=== PATIENT | female | born 1955 | race Caucasian/White ===

== ENCOUNTER 2017-09-16 07:11 | Day surgery (SDC) | payer BC ==
[2017-09-16] MEDS ORDERED: Propofol 200 MG/20 ML SDV ONE ×2 (07:13→07:43)
[2017-09-16] MEDS ORDERED: Midazolam 1 MG/ML 2 ML SDV ONE ×2 (07:13→07:43)
[2017-09-16] MEDS ORDERED: fentaNYL 100 MCG/2 ML SDV ONE ×2 (07:13→07:43)
[2017-09-16] MEDS ORDERED: Lidocaine 2% 5 ML SDV ONE ×2 (07:15→07:43)
[2017-09-16] MEDS ORDERED: Bupivacaine 0.25% 10 ML SDV ONE (07:22)
--- NOTE | 2017-09-16 07:40 | PCM.PREANE ---
Preanesthetic Assessment - Anesthesia/Transfusion/Family Hx Anesthesia History: Prior Anesthesia Without Reaction Family History of Anesthesia Reaction: No Transfusion History: No Prior Transfusion(s) Intubation History: Unknown - Review of Systems General: No Symptoms Pulmonary: No Symptoms Cardiovascular: No Symptoms Gastrointestinal: No Symptoms Neurological: No Symptoms Other: Reports: None - Physical Assessment Height: 1.66 m Weight: 90.718 kg ASA Class: 3 Mental Status: Alert & Oriented x3 Airway Class: Mallampati = 2 Dentition: Reports: Normal Dentition (teeth overlaping, crowded) Thyro-Mental Finger Breadths: 3 Mouth Opening Finger Breadths: 2 ROM/Head Extension: Limited/Partial Lungs: Clear to Auscultation, Normal Respiratory Effort Cardiovascular: Regular Rate, Regular Rhythm - Allergies Allergies/Adverse Reactions: Allergies Allergy/AdvReac Type Severity Reaction Status Date / Time No Known Allergies Allergy Verified 06/15/14 04:08 - Blood Blood Available: No - Anesthesia Plan Pre-Op Medication Ordered: None - Acknowledgements Anesthesia Type Planned: MAC Pt an Appropriate Candidate for the Planned Anesthesia: Yes Alternatives and Risks of Anesthesia Discussed w Pt/Guardian: Yes Pt/Guardian Understands and Agrees with Anesthesia Plan: Yes PreAnesthesia Questionnaire HEENT History: Reports: Other (See Below) Other HEENT History: wears glassses Cardiovascular History: Reports: CAD, High Cholesterol, Hypertension, Stents ( x2 '11 and x1 '13) Respiratory History: Reports: Sleep Apnea Other Respiratory History: hx sleep apnea in 2009, does not use CPAP, states she feels does not have sleep apnea anymore as she has lost weight Genitourinary History: Reports: None 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: Musculoskeletal History: Reports: Arthritis, Fracture Neurological History: Reports: None Endocrine/Metabolic History: Reports: Diabetes, Type II, Obesity/BMI 30+ - Past Surgical History Head Surgeries/Procedures: Reports: None HEENT Surgical History: Reports: Tonsillectomy Cardiovascular Surgical History: Reports: Coronary Artery Stent Female Surgical History: Reports: Tubal Ligation Musculoskeletal Surgical History: Reports: Knee Replacement Other Musculoskeletal Surgeries/Procedures:: hx rt knee replacement, and tx for fx left wrist and fx ankle - SUBSTANCE USE Smoking Status *Q: Never Smoker Recreational Drug Use History: No - HOME MEDS Home Medications: Home Meds Aspirin 81 mg PO QAM 06/15/14 [History] Atenolol 25 mg PO QAM 06/15/14 [History] Glucosamine [Glucosamine Sulfate] 500 mg PO QAM 06/15/14 [History] Lisinopril 5 mg PO QAM 06/15/14 [History] Multivitamin with Minerals [Antioxidant Vitamin] 1 each PO QAM 06/15/14 [History ] Nitroglycerin [Nitrostat] 0.4 mg SL ASDIRECTED PRN 06/15/14 [History] [place]-3/DHA/Epa/Fish Oil [Fish Oil 1,000 mg Softgel] 1 each PO QAM 06/15/14 [ History] atorvaSTATin [Lipitor] 40 mg PO BEDTIME 06/15/14 [History] metFORMIN [Glucophage XR] 2 tab PO BID 06/15/14 [History] Cholecalciferol (Vitamin D3) [Vitamin D3] 4,000 unit PO DAILY 09/14/17 [History] Clopidogrel Bisulfate [Plavix] 75 mg PO DAILY 09/14/17 [History] Dulaglutide [Trulicity] 0.75 mg SUBCUT WEEKLY 09/14/17 [History] Ibuprofen 400 mg PO ASDIRECTED PRN 09/14/17 [History] - CURRENT (IN HOUSE) MEDS Current Meds: Current Medications Hydrocodone Bitart/Acetaminophen ([place] 325-5 Mg) 1 tab PO Q4H PRN PRN Reason: Pain Bupivacaine HCl (Sensorcaine-Mpf 0.25%) 10 ml INJECT ONETIME ONE Stop: 09/16/17 08:01 Cefazolin Sodium/Dextrose 2 gm (/ Premix) 50 mls @ 100 mls/hr IV ONETIME ONE Stop: 09/16/17 08:29 Lactated Ringer's (Ringers, Lactated) 1,000 mls @ 125 mls/hr IV ASDIRECTED KASSIDY Discontinued Medications Bupivacaine HCl (Sensorcaine-Mpf 0.25%) Confirm Administered Dose 20 ml .ROUTE .STK-MED ONE Stop: 09/16/17 07:23 Fentanyl (Sublimaze) Confirm Administered Dose 100 mcg .ROUTE .STK-MED ONE Stop: 09/16/17 07:14 Lidocaine (Xylocaine-Mpf 2%) Confirm Administered Dose 5 ml .ROUTE .STK-MED ONE Stop: 09/16/17 07:16 Midazolam HCl (Versed 1 Mg/Ml) Confirm Administered Dose 2 mg .ROUTE .STK-MED ONE Stop: 09/16/17 07:14 Propofol (Diprivan 20 Ml) Confirm Administered Dose 200 mg .ROUTE .STK-MED ONE Stop: 09/16/17 07:14
[2017-09-16] MEDS ORDERED: ceFAZolin 2 GM in Premix Bag 1 BAG IV ONE (08:00)
[2017-09-16] MEDS ORDERED: Bupivacaine 0.25% 10 ML SDV INJECT ONE (08:00)
[2017-09-16] MEDS ORDERED: Lactated Ringers 1,000 ML IV SCH (08:00)
[2017-09-16] MEDS ORDERED: Acetaminophen/HYDROcodone 325-5 MG Tab PO PRN (08:00)
[2017-09-16] MEDS ORDERED: Ketorolac 30 MG/ML SDV ONE (08:42)
[2017-09-16] MEDS ORDERED: Ondansetron 4 MG/2 ML SDV ONE (08:42)
[2017-09-16] MEDS ORDERED: diphenhydrAMINE 50 MG/ML SDV ONE (08:42)
--- NOTE | 2017-09-16 20:05 | PCM.OPNOTE ---
- General Post-Op/Procedure Note Date of Surgery/Procedure: 09/16/17 Operative Procedure(s): right carpal tunnel release Pre Op Diagnosis: carpal tunnel syndrome right Post-Op Diagnosis: Same Anesthesia Technique: Local, MAC Primary Surgeon: Carlee Umana Injection Operator: Griselda Albrecht Role of Injection Operator: retraction Complications: None Condition: Good Free Text/Narrative:: Intake & Output 09/16/17 09/16/17 09/16/17 07:59 15:59 23:59 Intake Total 850 Balance 850
--- NOTE | 2017-09-24 20:21 | OR ---
SURGEON: GERMAIN MADRID MD DATE OF PROCEDURE: 09/16/2017 PREOPERATIVE DIAGNOSIS: Right carpal tunnel syndrome. POSTOPERATIVE DIAGNOSIS: Right carpal tunnel syndrome. PROCEDURE PERFORMED: Right carpal tunnel release. INDICATIONS: Ms. Moran is a 62-year-old female seen today in evaluation for right carpal tunnel release. Risks and benefits of carpal tunnel release were discussed with her and she was in agreement to proceed. Risks were including, but not limited to, bleeding, infection, damage to underlying or overlying structures, possible need for future interventions, possible scarring. PROCEDURE IN DETAIL: After informed consent was obtained and placed on the chart, the patient was brought to the operating theater and laid in supine position. After adequate local MAC anesthesia was obtained, the area was prepped and draped and a time- out was completed to confirm side and site. Once adequately prepped and draped and a time-out had been completed, the arm was exsanguinated and the tourniquet was then inflated to 200 mmHg. Once adequately inflated, attention was paid to dissection of the transverse carpal ligament. A 15 blade was used to dissect through the skin and subcutaneous tissues, and once the ligament was breached, dissection was carried distally and proximally under direct visualization. Once adequately released, attention was then paid to irrigation and closure using a 5-0 nylon stitch in a horizontal mattress fashion. Once adequately closed, the wound was dressed with Xeroform fluffs and a Kerlix gauze dressing and a 2-inch Sridhar wrap. The patient tolerated this well. All counts and needles were correct at the end of the case. FOLLOWUP INSTRUCTIONS: The patient will see us in two weeks or sooner if any problems, questions, or concerns. She was given a prescription for pain control. She will keep the dressing on for 48 hours and then remove and shower per usual. HEGGTHE / MODL /[id number]
== END 2017-09-16 09:45 | disposition home or self-care (01) ==
LOC: MW.SDS 07:11
PROVIDERS: ATTEND Plastic Surgery
DX: G56.01 Carpal tunnel syndrome, right upper limb (principal); I25.10 Atherosclerotic heart disease of native coronary artery without angina pectoris; I10 Essential (primary) hypertension; E78.00 Pure hypercholesterolemia, unspecified; G47.33 Obstructive sleep apnea (adult) (pediatric); M17.0 Bilateral primary osteoarthritis of knee; E11.9 Type 2 diabetes mellitus without complications; E66.9 Obesity, unspecified; Z95.5 Presence of coronary angioplasty implant and graft; Z79.82 Long term (current) use of aspirin; Z79.899 Other long term (current) drug therapy; Z79.02 Long term (current) use of antithrombotics/antiplatelets; Z79.84 Long term (current) use of oral hypoglycemic drugs; Z90.89 Acquired absence of other organs; Z98.51 Tubal ligation status; Z68.34 Body mass index [BMI] 34.0-34.9, adult; Z96.651 Presence of right artificial knee joint
CPT/HCPCS: 64721; J1200; J1885; J2250; J2405; J3010; 01810; J2704

== ENCOUNTER 2018-12-21 08:02 | Day surgery (SDC) | payer BC ==
[~2018-12-21 08:02] MED LIST: Glycopyrrolate 0.2 MG/ML SDV ONE; Lactated Ringers 1,000 ML IV SCH; Midazolam 1 MG/ML 2 ML SDV ONE; Ondansetron 4 MG/2 ML SDV ONE; Propofol 200 MG/20 ML SDV ONE; Rocuronium 10 MG/ML 10 ML Syringe ONE; Sodium Chloride 0.9% 10 ML SDV IV PRN; Sodium Chloride 0.9% 10 ML Syringe FLUSH PRN; Sodium Chloride 0.9% 2.5 ML Syringe FLUSH PRN; fentaNYL 100 MCG/2 ML SDV ONE
--- NOTE | 2018-12-21 08:35 | PCM.PREANE ---
Preanesthetic Assessment - Anesthesia/Transfusion/Family Hx Anesthesia History: Prior Anesthesia Without Reaction Family History of Anesthesia Reaction: No Transfusion History: No Prior Transfusion(s) Intubation History: Unknown - Review of Systems General: No Symptoms Pulmonary: No Symptoms Cardiovascular: No Symptoms Gastrointestinal: Other (recent cologuard test positive) Neurological: No Symptoms Other: Reports: None - Physical Assessment Height: 1.65 m Weight: 95.708 kg ASA Class: 3 Mental Status: Alert & Oriented x3 Airway Class: Mallampati = 2 Dentition: Reports: Normal Dentition (overlaping front upper teeth) Thyro-Mental Finger Breadths: 3 Mouth Opening Finger Breadths: 2 ROM/Head Extension: Full Lungs: Clear to Auscultation, Normal Respiratory Effort Cardiovascular: Regular Rate, Regular Rhythm - Allergies Allergies/Adverse Reactions: Allergies Allergy/AdvReac Type Severity Reaction Status Date / Time No Known Allergies Allergy Verified 12/16/18 11:00 - Blood Blood Available: No - Anesthesia Plan Pre-Op Medication Ordered: None - Acknowledgements Anesthesia Type Planned: MAC Pt an Appropriate Candidate for the Planned Anesthesia: Yes Alternatives and Risks of Anesthesia Discussed w Pt/Guardian: Yes Pt/Guardian Understands and Agrees with Anesthesia Plan: Yes PreAnesthesia Questionnaire HEENT History: Reports: Other (See Below) Other HEENT History: wears glasses Cardiovascular History: Reports: CAD, High Cholesterol, Hypertension, Stents Respiratory History: Reports: Sleep Apnea Other Respiratory History: hx of sleep apnea before cardiac stent placement, no symptoms now Genitourinary History: Reports: None 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: Musculoskeletal History: Reports: Osteoarthritis Neurological History: Reports: None Endocrine/Metabolic History: Reports: Diabetes, Type II, Obesity/BMI 30+ - Past Surgical History Head Surgeries/Procedures: Reports: None HEENT Surgical History: Reports: Tonsillectomy Cardiovascular Surgical History: Reports: Coronary Artery Stent Other Cardiovascular Surgeries/Procedures: 2 stents placed in 2010 and 1 stent in 2013 Female Surgical History: Reports: Tubal Ligation Musculoskeletal Surgical History: Reports: Knee Replacement, ORIF Other Musculoskeletal Surgeries/Procedures:: hx right TKA, ORIF left ankle ( hardware removed) and ORIF left wrist-has hardware - SUBSTANCE USE Smoking Status *Q: Never Smoker Recreational Drug Use History: No - HOME MEDS Home Medications: Home Meds Aspirin 81 mg PO QAM 06/15/14 [History] Atenolol 25 mg PO QAM 06/15/14 [History] Glucosamine [Glucosamine Sulfate] 500 mg PO QAM 06/15/14 [History] Lisinopril 5 mg PO QAM 06/15/14 [History] Multivitamin with Minerals [Antioxidant Vitamin] 1 each PO QAM 06/15/14 [History ] Nitroglycerin [Nitrostat] 0.4 mg SL ASDIRECTED PRN 06/15/14 [History] [place]-3/DHA/Epa/Fish Oil [Fish Oil 1,000 mg Softgel] 1,000 mg PO QAM 06/15/14 [ History] atorvaSTATin [Lipitor] 40 mg PO BEDTIME 06/15/14 [History] metFORMIN [Glucophage XR] 1,000 mg PO BID 06/15/14 [History] Cholecalciferol (Vitamin D3) [Vitamin D3] 4,000 unit PO DAILY 09/14/17 [History] Clopidogrel Bisulfate [Plavix] 75 mg PO DAILY 09/14/17 [History] Ibuprofen 400 mg PO ASDIRECTED PRN 09/14/17 [History] Cholecalciferol (Vitamin D3) [Vitamin D3] 4,000 unit PO DAILY 12/16/18 [History] Empagliflozin [Jardiance] 25 mg PO QAM 12/16/18 [History] - CURRENT (IN HOUSE) MEDS Current Meds: Current Medications Lactated Ringer's (Ringers, Lactated) 1,000 mls @ 125 mls/hr IV ASDIRECTED KASSIDY Sodium Chloride (Saline Flush) 10 ml FLUSH ASDIRECTED PRN PRN Reason: Keep Vein Open Sodium Chloride (Saline Flush) 2.5 ml FLUSH ASDIRECTED PRN PRN Reason: Keep Vein Open Sodium Chloride (Saline Flush) 10 ml FLUSH ASDIRECTED PRN PRN Reason: Keep Vein Open Sodium Chloride (Saline Flush) 2.5 ml FLUSH ASDIRECTED PRN PRN Reason: Keep Vein Open Sodium Chloride (Normal Saline) 10 ml IV ASDIRECTED PRN PRN Reason: IV Use Discontinued Medications Fentanyl (Sublimaze) Confirm Administered Dose 100 mcg .ROUTE .STK-MED ONE Stop: 12/21/18 07:29 Glycopyrrolate (Robinul) Confirm Administered Dose 0.2 mg .ROUTE .STK-MED ONE Stop: 12/21/18 07:30 Midazolam HCl (Versed 1 Mg/Ml) Confirm Administered Dose 2 mg .ROUTE .STK-MED ONE Stop: 12/21/18 07:29 Ondansetron HCl (Zofran) Confirm Administered Dose 4 mg .ROUTE .STK-MED ONE Stop: 12/21/18 07:29 Propofol (Diprivan 20 Ml) Confirm Administered Dose 400 mg .ROUTE .STK-MED ONE Stop: 12/21/18 07:29 Rocuronium [place] (Zemuron) Confirm Administered Dose 100 mg .ROUTE .STK-MED ONE Stop: 12/21/18 07:30
[2018-12-21] MEDS ORDERED: Ondansetron 4 MG/2 ML SDV ONE (10:13)
[2018-12-21] MEDS ORDERED: Midazolam 1 MG/ML 2 ML SDV ONE (10:14)
[2018-12-21] MEDS ORDERED: Propofol 200 MG/20 ML SDV ONE (10:14)
[2018-12-21] MEDS ORDERED: fentaNYL 100 MCG/2 ML SDV ONE (10:14)
--- NOTE | 2018-12-21 11:27 | PCM.OPNOTE ---
- General Post-Op/Procedure Note Date of Surgery/Procedure: 12/21/18 Operative Procedure(s): Diagnostic colonoscopy Findings: Transverse colon polyp, splenic flexure polyp, diverticulosis, tortuous colon Pre Op Diagnosis: Positive cologuard Post-Op Diagnosis: Transverse colon polyp, splenic flexure polyp, diverticulosis Anesthesia Technique: [facility] Primary Surgeon: Moriah Jewell Condition: Good Free Text/Narrative:: Intake & Output 12/20/18 12/21/18 12/21/18 22:59 06:59 14:59 Intake Total 1500 Balance 1500
--- NOTE | 2018-12-22 13:18 | OR ---
SURGEON: WILBUR MCKEON MD DATE OF PROCEDURE: 12/21/2018 PREOPERATIVE DIAGNOSIS: Positive Cologuard test. POSTOPERATIVE DIAGNOSES: 1. Diverticulosis. 2. Transverse colon polyp. 3. Splenic flexure polyp. PROCEDURE PERFORMED: Diagnostic colonoscopy. ANESTHESIA: MAC. INSTRUMENT USED: Olympus colonoscope. EXTENT OF EXAM: To the cecum. PREPARATION: Good. LIMITATIONS: None. INDICATION FOR EXAMINATION: The patient is a 63-year-old female, recently had a positive Cologuard test. We discussed the need for diagnostic colonoscopy. I explained the procedure, expected perioperative course, and risks including bleeding, infection, or damage to surrounding structures including perforation. The patient verbalized understanding and wishes to proceed. PROCEDURE IN DETAIL: The patient was brought to the endoscopy suite and placed in the left lateral decubitus position. A time-out was completed verifying the patient's name, age, date of , allergies, and procedure to be performed. Monitored anesthesia care was induced and continuous oxygen was provided via nasal cannula throughout the procedure. After adequate sedation was achieved, a digital rectal exam was performed. This exam was within normal limits. A well lubricated colonoscope was inserted in the rectum and advanced under direct visualization to the level of the cecum. The cecum was identified by both visual and anatomic landmarks. A photograph was taken of the cecal cap as well as the scope retroflexed within the cecum. Scope was then fully withdrawn while examining the color, texture, anatomy, and integrity of the mucosa from the cecum to the anal canal. The patient was found to have diverticulosis throughout the sigmoid colon. Her colon was also very tortuous as well. In the distal transverse colon, she had a small sessile polyp, this was at 70 cm. It was removed using cold biopsy forceps in piecemeal fashion. At the splenic flexure, she had another smaller polyp. This was at 60 cm. It was removed in a similar fashion. The scope was then brought into the rectum and retroflexed to allow visualization of the anal canal opening. This appeared normal and a photograph was taken. Scope was then straightened out and fully withdrawn. The cecum to anus time was 12 minutes. The patient tolerated the procedure well and was taken to PACU in stable condition. ENDOSCOPIC DIAGNOSES: 1. Diverticulosis. 2. Transverse colon polyp. 3. Splenic flexure polyp. RECOMMENDATIONS: Follow up in clinic in 2 weeks. WENDY AGUILERA /[id number]
== END 2018-12-21 12:01 | disposition home or self-care (01) ==
LOC: MW.SDS 08:02
PROVIDERS: ATTEND Surgery
DX: R19.5 Other fecal abnormalities (principal); D12.3 Benign neoplasm of transverse colon; K57.30 Diverticulosis of large intestine without perforation or abscess without bleeding; E11.9 Type 2 diabetes mellitus without complications; I10 Essential (primary) hypertension; E66.9 Obesity, unspecified; Z68.35 Body mass index [BMI] 35.0-35.9, adult; E78.5 Hyperlipidemia, unspecified; E78.00 Pure hypercholesterolemia, unspecified; M19.90 Unspecified osteoarthritis, unspecified site; Z79.01 Long term (current) use of anticoagulants; Z79.84 Long term (current) use of oral hypoglycemic drugs; Z79.82 Long term (current) use of aspirin; Z79.899 Other long term (current) drug therapy
CPT/HCPCS: 45380; J2250; J2405; J2704; J3010; J7120; 00811; 88305; J3490

== ENCOUNTER 2020-11-07 21:27 | Emergency (ER) | payer MEDICARE, OTHER ==
--- NOTE | 2020-11-07 21:43 | EDM.PDOC ---
ED HPI GENERAL MEDICAL PROBLEM - General Chief Complaint: Back Pain or Injury Stated Complaint: BACK PAIN Time Seen by Provider: 11/07/20 21:36 Source of Information: Reports: Patient History Limitations: Reports: No Limitations - History of Present Illness INITIAL COMMENTS - FREE TEXT/NARRATIVE: Is a 65-year-old female who presents today for left lower back pain. Patient states that 2 days ago after doing water aerobics she try to get a spasm in her left lower back. Patient states that she sees cramping episodes that cause the pain. Patient states they are not brought on by any event. She took a old hydrocodone pill little bit before arrival without much relief. Patient denies any leg weakness or numbness saddle anesthesia or urinary symptoms. Patient denies any direct injuries to the back. L back Pain Score (Numeric/FACES): 8 - Related Data Allergies Allergy/AdvReac Type Severity Reaction Status Date / Time No Known Allergies Allergy Verified 11/07/20 21:30 Home Meds: Home Meds Aspirin 81 mg PO QAM 06/15/14 [History] Glucosamine [Glucosamine Sulfate] 500 mg PO QAM 06/15/14 [History] Lisinopril 5 mg PO QAM 06/15/14 [History] Multivitamin with Minerals [Antioxidant Vitamin] 1 each PO QAM 06/15/14 [History] Nitroglycerin [Nitrostat] 0.4 mg SL ASDIRECTED PRN 06/15/14 [History] [place]-3/DHA/Epa/Fish Oil [Fish Oil 1,000 mg Softgel] 1,000 mg PO QAM 06/15/14 [History] atenoloL [Atenolol] 25 mg PO QAM 06/15/14 [History] atorvaSTATin [Lipitor] 40 mg PO BEDTIME 06/15/14 [History] metFORMIN [Glucophage XR] 1,000 mg PO BID 06/15/14 [History] Clopidogrel Bisulfate [Plavix] 75 mg PO DAILY 09/14/17 [History] Ibuprofen 400 mg PO ASDIRECTED PRN 09/14/17 [History] Cholecalciferol (Vitamin D3) [Vitamin D3] 4,000 unit PO DAILY 12/16/18 [History] Empagliflozin [Jardiance] 25 mg PO QAM 12/16/18 [History] Cyclobenzaprine [Flexeril] 10 mg PO TID PRN 10 Days #30 tab 11/07/20 [Rx] Past Medical History HEENT History: Reports: Other (See Below) Other HEENT History: wears glassses Cardiovascular History: Reports: CAD, High Cholesterol, Hypertension, Stents Respiratory History: Reports: Sleep Apnea Other Respiratory History: hx sleep apnea in 2009, does not use CPAP, states she feels does not have sleep apnea anymore as she has lost weight Genitourinary History: Reports: 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 ED EXAM,LOWER BACK PAIN/INJURY - Physical Exam Exam: See Below Exam Limited By: No Limitations General Appearance: Alert, WD/WN Head: Atraumatic Respiratory/Chest: No Respiratory Distress, Lungs Clear Cardiovascular: Normal Peripheral Pulses, Regular Rate, Rhythm GI/Abdominal: Normal Bowel Sounds, Soft, Non-Tender Back Exam: Normal Inspection, Full Range of Motion, Muscle Spasm. No: Paraspinal Tenderness, Vertebral Tenderness Neurological: Alert, Normal Dorsiflexion, CN II-XII Intact #1 Interpretation EKG Date: 11/07/20 Time: 21:25 Rhythm: Other (sinus marie) ST-T: Normal Course - Vital Signs Last Recorded V/S: Last Vital Signs Temp 97.1 F 11/07/20 21:35 Pulse 53 L 11/07/20 21:35 Resp 16 11/07/20 21:35 BP 174/62 H 11/07/20 21:35 Pulse Ox 92 L 11/07/20 21:35 - Orders/Labs/Meds Meds: Medications Discontinued Medications Generic Name Dose Route Start Last Admin Trade Name Freq PRN Reason Stop Dose Admin Cyclobenzaprine HCl 10 mg 11/07/20 21:59 11/07/20 22:04 Flexeril PO 11/07/20 22:00 10 mg ONETIME ONE Administration - Re-Assessments/Exams Free Text/Narrative Re-Assessment/Exam: 11/07/20 23:13 Back pain is improved with Flexeril. Will discharge home with pain medications and follow-up in physical therapy. Departure - Departure Time of Disposition: 23:13 Disposition: Home, Self-Care 01 Condition: Good Clinical Impression: Back pain - Discharge Information *PRESCRIPTION DRUG MONITORING PROGRAM REVIEWED*: Not Applicable *COPY OF PRESCRIPTION DRUG MONITORING REPORT IN PATIENT JACLYN: Not Applicable Instructions: Acute Back Pain, Adult Referrals: Esau Echeverria MD [Primary Care Provider] - Forms: ED Department Discharge Additional Instructions: The following information is given to patients seen in the emergency department who are being discharged to home. This information is to outline your options for follow-up care. We provide all patients seen in our emergency department with a follow-up referral. The need for follow-up, as well as the timing and circumstances, are variable depending upon the specifics of your emergency department visit. If you don't have a primary care physician on staff, we will provide you with a referral. We always advise you to contact your personal physician following an emergency department visit to inform them of the circumstance of the visit and for follow-up with them and/or the need for any referrals to a consulting specialist. The emergency department will also refer you to a specialist when appropriate. This referral assures that you have the opportunity for follow-up care with a specialist. All of these measure are taken in an effort to provide you with optimal care, which includes your follow-up. Under all circumstances we always encourage you to contact your private physician who remains a resource for coordinating your care. When calling for follow-up care, please make the office aware that this follow-up is from your recent emergency room visit. If for any reason you are refused follow-up, please contact the [facility] Emergency Department at and asked to speak to the emergency department charge nurse. Please follow up with your primary care physician. If you do not have a primary care physician, see below: [facility] [address] [place] [id number] [facility] [address] [place] [id number] [facility] at [facility] (Physical Therapy, Occupational Therapy, Speech Therapy) Professional Building [address] [place] [address], [address] [place] [address] . Please follow-up with your primary care physician we also provided number for physical therapy that you can follow-up with if continue having back pain. We sent some pain medicine to your pharmacist as well as you can take if you continue to have back pain. The you have any leg numbness weakness All your bladder please return to the ED. Sepsis Event Note (ED) - Focused Exam Vital Signs: Vital Signs Temp Pulse Resp BP Pulse Ox 11/07/20 21:35 97.1 F 53 L 16 174/62 H 92 L - Assessment/Plan Assessment:: 65-year-old female who presents today for low back pain. Patient has no tenderness on examination and is able to ambulate. Patient only has pain when she developed spasms. Will attempt pain control x-ray and reassess.
[2020-11-07] MEDS ORDERED: Cyclobenzaprine 10 MG Tab PO ONE (21:59)
--- NOTE | 2020-11-07 22:47 | CR ---
INDICATION: Lower back pain TECHNIQUE: Lumbar spine 3 view. COMPARISON: 09/14/2019 FINDINGS: Stable lumbar spine alignment. Anterolisthesis of L4 on L5 again seen. Preserved vertebral body heights without a significant compression deformity. Multilevel spondylotic degenerative changes again noted with disc space narrowing, more pronounced at L3-4 and L4-5, and osteophyte formation. Mild hypertrophic degenerative changes in the lower lumbar facets. IMPRESSION: Degenerative changes again seen. Dictated by Giancarlo Love MD @ Nov 07 2020 10:40PM Signed by Dr. Giancarlo Love @ Nov 07 2020 10:44PM
== END 2020-11-07 23:31 | disposition home or self-care (01) ==
LOC: MW.ED 21:27
DX: M54.5 Low back pain (principal); E66.9 Obesity, unspecified; I25.2 Old myocardial infarction; I10 Essential (primary) hypertension; E78.00 Pure hypercholesterolemia, unspecified; Z95.5 Presence of coronary angioplasty implant and graft; Z79.82 Long term (current) use of aspirin; Z79.84 Long term (current) use of oral hypoglycemic drugs; Z79.899 Other long term (current) drug therapy; Z68.33 Body mass index [BMI] 33.0-33.9, adult
CPT/HCPCS: 72100; 93005; 99284; A9270; 93010; 99283